=== PATIENT | female | born 1955 | race Two or more races ===

== ENCOUNTER 2016-12-11 10:39 | Outpatient (CLI) | payer MEDICARE, OTHER ==
[~2016-12-11 10:39] MED LIST: CARAFATE1 G1 ORAL; DIFLUCAN100 MG ORAL; FOLIC ACID1 MG ORAL; LEXAPRO10 MG ORAL; LINZESS145 MCG PO; METHOTREXATE2.5 MG PO; PREVACID30 MG ORAL; PROTONIX40 MG ORAL; RASUVO SUBQ; SIMVASTATIN5 MG ORAL; TYLENOL325 MG ORAL; TYLENOL650 MG/20. ORAL; VITAMIN C500 M1 ORAL; [UNRECOGNIZED DRUG - OTHER]; cholesterol med
--- NOTE | 2016-12-11 11:09 | GI Progress Note ---
Assessment/Plan Problems: (1) Marquita esophagitis ICD Codes: B37.81 - Marquita esophagitis SNOMED: 92757888 (2) GERD (gastroesophageal reflux disease) ICD Codes: K21.9 - GERD (gastroesophageal reflux disease) SNOMED: 249232730 (3) Constipation ICD Codes: K59.00 - Constipation SNOMED: 30025082 (4) Esophagitis ICD Codes: K20.9 - Esophagitis SNOMED: 55952159 Status: stable Status Narrative Seen with . Assessment/Plan EGD scheduled for 12/17/16 - NPO @ [place] day prior procedure. refill rx; Carafate, baclofen new rx; Prevacid. Subjective Subjective abdominal pain GERD Objective T 98.0 BP 105/65 P 81 97 RA weight gain General Appearance: no apparent distress, alert, thin Cardiovascular: normal rate Respiratory/Chest: normal breath sounds, no respiratory distress Abdominal Exam: normal bowel sounds, non tender, soft Extremities: normal range of motion Objective Endoscopy Procedure Note Indication for Procedure: GERD Procedures Performed: EGD Operative Findings/Diagnosis: candid esophagitis LILY APODACA - Nov 23, 2015 10:51 Abigail Sparrow NAlon December 11, 2016 11:09
[2016-12-11] MEDS ORDERED: PREVACID 24HR15 M1 ORAL (11:10)
== END 2016-12-11 11:00 | disposition home or self-care (01) ==
LOC: PAN 10:39
DX: K21.9 Gastro-esophageal reflux disease without esophagitis (principal); K59.00 Constipation, unspecified; K20.9 Esophagitis, unspecified; B37.81 Candidal esophagitis
CPT/HCPCS: 99211

== ENCOUNTER 2016-12-17 09:27 | Day surgery (SDC) | payer MEDICARE, MEDICAID ==
[2016-12-17] VITALS (9 sets, daily range): BP systolic 95–120; BP diastolic 58–68
[~2016-12-17] VITALS: Ht 154.9 cm; Wt 53.1 kg
[~2016-12-17 09:27] MED LIST changes: +PREVACID 24HR15 M1 ORAL
--- NOTE | 2016-12-17 09:59 | Pre-Procedure Note/Attestation ---
Pre-Procedure Note/Attestation Complete Prior to Procedure Planned Procedure: not applicable Procedure Narrative: egd Indications for Procedure Pre-Operative Diagnosis: GERD Attestation I attest that I discussed the nature of the procedure; its benefits; risks and complications; and alternatives (and the risks and benefits of such alternatives ), prior to the procedure, with the patient (or the patient's legal accounts receivable representative). I attest that, if there was a reasonable possibility of needing a blood transfusion, the patient (or the patient's legal accounts receivable representative) was given the [facility] standardized written summary, pursuant to the Max[employer] [place] Blood Safety Act ([place] Health and Safety Code # 1645, as amended). I attest that I re-evaluated the patient just prior to the surgery and that there has been no change in the patient's H&P, except as documented below: LILY APODACA December 17, 2016 09:59
--- NOTE | 2016-12-17 10:00 | Short Stay Surgery H&P ---
History of Present Illness History of Present Illness Chief Complaint gerd HPI Desiree Baxter is a 61 year old female who was admitted on for GERD Patient History Allergies: Coded Allergies: No Known Allergies (Unverified , 12/09/13) PAST MEDICAL HISTORY: (1) Esophagitis (2) Constipation (3) GERD (gastroesophageal reflux disease) (4) Marquita esophagitis (5) Hx of esophagogastroduodenoscopy Past Surgeries: Social History: Medication History Scheduled Ascorbic Acid* (Vitamin C*), 1,000 MG ORAL DAILY, (Reported) Folic Acid* (Folic Acid*), 1 MG ORAL DAILY, (Reported) Lansoprazole* (Prevacid 24HR*), 15 MG ORAL DAILY, (Reported) Linaclotide (Linzess), 145 MCG PO DAILY, (Reported) Pantoprazole* (Protonix*), 40 MG ORAL DAILY, (Reported) Simvastatin (Zocor), 20 MG ORAL BEDTIME, (Reported) Sucralfate* (Carafate*), 1 GM ORAL TID, (Reported) [Rasuvo injection ], 7.5 MG SUBQ QWEEK, (Reported) Scheduled PRN Acetaminophen (Acetaminophen), 650 MG ORAL Q6H PRN for Prn Headache/Temp > 101, (Reported) Review of Systems Cardiovascular: Reports: no symptoms Respiratory: Reports: no symptoms Skeletal: Reports: no symptoms Gastrointestinal: Reports: no symptoms Genitourinary: Reports: no symptoms Neurologic: Reports: no symptoms Endocrine: Reports: no symptoms Hematologic: Reports: no symptoms Physical Exam Skin: normal HENT: normal Heart: normal Lungs: normal Abdomen: normal Extremities: normal Plan Plan of Care egd Final Diagnosis: Attestation Are the patient's medical conditions optimized for surgery? Attestation Response: yes LILY APODACA December 17, 2016 10:00
[2016-12-17] MEDS ORDERED: Lidocaine 1% MPF 10mg/ml 5ml ONE (10:30)
[2016-12-17] MEDS ORDERED: LR 1000ml ONE (10:30)
[2016-12-17] MEDS ORDERED: Propofol 10mg/ml 20ml IV ONE (10:30)
--- NOTE | 2016-12-17 10:51 | Immediate Post-Op Evaluation ---
Immediate Post-Op Evalulation Immediate Post-Op Evalulation Procedure: EGD Date of Evaluation: December 17, 2016 Time of Evaluation: 10:50 IV Fluids: 300 Blood Pressure Systolic: 95 Blood Pressure Diastolic: 60 Pulse Rate: 14 Respiratory Rate: 14 O2 Sat by Pulse Oximetry: 97 Temperature (Fahrenheit): 97.8 Nausea: No Vomiting: No Complications none Patient Status: awake, reacts, patent Hydration Status: adequate Drug: none ABHINAV BERNARD CRNA December 17, 2016 10:51
--- NOTE | 2016-12-17 10:54 | Anethesia Preoperative Eval ---
Anesthesia Pre-op PMH/ROS General Date of Evaluation: December 17, 2016 Time of Evaluation: 10:53 Anesthesiologist: jeferson ASA Score: ASA 2 Mallampati Score Class I : Soft palate, uvula, fauces, pillars visible Class II: Soft palate, uvula, fauces visible Class III: Soft palate, base of uvula visible Class IV: Only hard plate visible Mallampati Classification: Class II Surgeon: denita Diagnosis: GERD Surgical Procedure: EGD Anesthesia History: none Family History: no anesthesia problems Allergies: Coded Allergies: No Known Allergies (Unverified , 12/09/13) Medications: see eMAR Past Medical History Gastrointestinal/Genitourinary: Reports: GERD Neurologic/Psychiatric: Denies: CVA, TIA, dementia, depression/anxiety, other Endocrine: Denies: DM, hypothyroidism, other, steroids HEENT: Denies: [place] (L), [place] (R), cataract (L), cataract (R), glaucoma, other Hematology/Immune: Denies: DVT, anemia, bleeding disorder, other Musculoskeletal/Integumentary: Denies: DDD, DJD, OA, RA, edema, other PMH Narrative: hx esophogitis Anesthesia Pre-op Phys. Exam Physician Exam Last Vital Signs Date Time Temp Pulse Resp B/P Pulse Ox O2 Delivery O2 Flow Rate FiO2 12/17/16 10:03 97.7 69 18 115/68 98 Room Air Constitutional: NAD Neurologic: CN 2-12 intact Cardiovascular: RRR Respiratory: CTA Gastrointestinal: S/NT/ND Airway Exam Mallampati Score: Class II ROM: full Dentures: no lower, no upper Anesthesia Pre-op A/P Studies Pre-op Studies: EKG - SR Risk Assessment & Plan Plan: mac Status Change Before Surgery: No Pre-Antibiotics Drug: none ABHINAV BERNARD CRNA December 17, 2016 10:54
--- NOTE | 2016-12-17 10:54 | Endoscopy Procedure Note ---
Endoscopy Procedure Note Indication for Procedure: GERD Procedures Performed: EGD Operative Findings/Diagnosis: candidia esophagitis Specimen: yes Pt Tolerated Procedure Well: Yes Estimated Blood Loss: none Anesthesiologist: marito Anesthesia: MAC Implant(s) used?: No 50 yrs or older w/o bx or poly: Not Applicable 10yrs. F/U not recommended: Not Applicable LILY APODACA December 17, 2016 10:54
--- NOTE | 2016-12-17 12:00 | 48 Hour Post Anesthesia Eval ---
Post Anesthesia Evaluation Procedure: EGD Date of Evaluation: December 17, 2016 Time of Evaluation: 11:59 Blood Pressure Systolic: 120 0: 60 Pulse Rate: 74 Respiratory Rate: 14 O2 Sat by Pulse Oximetry: 100 Airway: patent Nausea: No Vomiting: No Hydration Status: adequate Mental Status/LOC: patient returned to baseline Post-Anesthesia Complications: none Follow-up care needed: N/A ABHINAV BERNARD CRNA December 17, 2016 12:00
--- NOTE | 2016-12-17 18:49 | Procedure Note ---
DATE OF PROCEDURE: 12/17/2016 SURGEON: Dejuan Hunter M.D. PROCEDURE: Upper endoscopy with biopsy. ANESTHESIA: Per [employer], Kelsey Tarrillade. INSTRUMENT: Olympus adult flexible upper endoscope. INDICATION: Dysphagia. REASON FOR PROCEDURE: The procedure, risks, benefits, and possible consequences, including hemorrhage, aspiration, perforation and infection, and alternative treatments, were explained to the patient/legal guardian by Dr. Dejuan Hunter and the patient/legal guardian understood and accepted these risks. DESCRIPTION OF PROCEDURE: After informed consent was obtained and the patient was adequately sedated, Olympus upper endoscope was advanced from mouth into the second portion of duodenum and retroflexion was performed in the stomach. The patient had diffuse gastritis. In the stomach, there were multiple white patches highly suspicious for Marquita esophagitis. [place] biopsy of this area was obtained. The patient tolerated the procedure very well without any complication. SUMMARY OF FINDINGS: 1. Marquita esophagitis. 2. Gastritis. RECOMMENDATIONS: Follow up biopsies and treat accordingly. Dejuan Hunter M.D. DR: ZELDA JOB#: [id number] CC:
--- NOTE | 2016-12-18 14:30 | Cardiology Report ---
APPROVED REPORT EKG Measurement Heart [id number] MN [id number] [id number] Normal sinus rhythm Normal ECG
== END 2016-12-17 12:00 | disposition home or self-care (01) ==
LOC: GAS 09:27
DX: B37.81 Candidal esophagitis (principal); K29.70 Gastritis, unspecified, without bleeding; K21.9 Gastro-esophageal reflux disease without esophagitis
CPT/HCPCS: 43239; 93005; J2704; J7120; 94003; 94150

== ENCOUNTER 2017-01-01 10:19 | Outpatient (CLI) | payer MEDICARE, MEDICAID ==
[2017-01-01 10:29] VITALS: BP 113/58
--- NOTE | 2017-01-01 11:20 | GI Progress Note ---
Assessment/Plan Problems: (1) Marquita esophagitis ICD Codes: B37.81 - Marquita esophagitis SNOMED: 81193684 (2) GERD (gastroesophageal reflux disease) ICD Codes: K21.9 - GERD (gastroesophageal reflux disease) SNOMED: 915380628 (3) Constipation ICD Codes: K59.00 - Constipation SNOMED: 81622363 (4) Esophagitis ICD Codes: K20.9 - Esophagitis SNOMED: 91399456 Status: stable Status Narrative Seen with . Assessment/Plan EGD reviewed with patient >> gastritis + marquita esophagitis rx fluconazole 200mg x 10 days refill Linzess RTC x 3 months Subjective Gastrointestinal/Abdominal: Reports: constipated - taking linzess Objective Last 24 Hour Vital Signs Date Time Temp Pulse Resp B/P Pulse Ox O2 Delivery O2 Flow Rate FiO2 01/01/17 10:29 97.6 73 18 113/58 General Appearance: no apparent distress, alert Cardiovascular: normal rate Respiratory/Chest: normal breath sounds, no respiratory distress Abdominal Exam: normal bowel sounds, non tender, soft Extremities: normal range of motion Abigail Sparrow N.P. January 01, 2017 11:20
== END 2017-01-01 10:50 | disposition home or self-care (01) ==
LOC: PAN 10:19
DX: K21.9 Gastro-esophageal reflux disease without esophagitis (principal); B37.81 Candidal esophagitis; K59.00 Constipation, unspecified; K20.9 Esophagitis, unspecified
CPT/HCPCS: 99211

== ENCOUNTER → 2017-03-05 | Outpatient (CLI) | payer MEDICARE, MEDICAID ==
[~2017-03-05] MED LIST changes: +ACETAMINOPHEN325 M1 ORAL
[2017-03-05 10:19] VITALS: BP 98/63
--- NOTE | 2017-03-05 10:57 | GI Progress Note ---
Assessment/Plan Problems: (1) Hx of esophagogastroduodenoscopy ICD Codes: Z98.89 - Other specified postprocedural states SNOMED: 43992354, 571379308 (2) Marquita esophagitis ICD Codes: B37.81 - Marquita esophagitis SNOMED: 41350481 (3) GERD (gastroesophageal reflux disease) ICD Codes: K21.9 - GERD (gastroesophageal reflux disease) SNOMED: 896081412 (4) Constipation ICD Codes: K59.00 - Constipation SNOMED: 09512344 (5) Esophagitis ICD Codes: K20.9 - Esophagitis SNOMED: 46596586 Status: stable Status Narrative Seen with Dr. Hunter. Assessment/Plan fungus esophagitis s/p tx refill linzess, carafate, baclofen RTC x 3 months Subjective Subjective GERD >> prevacid / carafate constipation >> Linzess, request to change to 290mcg. Objective Last 24 Hour Vital Signs Date Time Temp Pulse Resp B/P Pulse Ox O2 Delivery O2 Flow Rate FiO2 03/05/17 10:19 97.9 74 16 98/63 Weight (Pounds): 124 General Appearance: no apparent distress, alert Cardiovascular: normal rate Respiratory/Chest: normal breath sounds, no respiratory distress Abdominal Exam: normal bowel sounds, non tender, soft Extremities: normal range of motion Abigail Sparrow N.P. Mar 05, 2017 10:57
== END | disposition home or self-care (01) ==
LOC: PAN 10:04
DX: B37.81 Candidal esophagitis (principal); Z98.890 Other specified postprocedural states; K21.9 Gastro-esophageal reflux disease without esophagitis; K59.00 Constipation, unspecified; K20.9 Esophagitis, unspecified
CPT/HCPCS: 99211

== ENCOUNTER 2017-07-25 13:30 | Outpatient (CLI) | payer MEDICARE, MEDICAID ==
[2017-07-25 13:56] VITALS: BP 116/60
--- NOTE | 2017-07-25 14:37 | GI Progress Note ---
Assessment/Plan Problems: (1) Esophagitis ICD Codes: K20.9 - Esophagitis SNOMED: 41752441 (2) Constipation ICD Codes: K59.00 - Constipation SNOMED: 05863220 (3) GERD (gastroesophageal reflux disease) ICD Codes: K21.9 - GERD (gastroesophageal reflux disease) SNOMED: 713015634 (4) Hx of esophagogastroduodenoscopy ICD Codes: Z98.89 - Other specified postprocedural states SNOMED: 39861251, 990407759 (5) Marquita esophagitis ICD Codes: B37.81 - Marquita esophagitis SNOMED: 24548522 Status: stable Status Narrative Seen with Dr. Hunter. Assessment/Plan last EGD 12/19 RX refill * Prevacid * Diflucan * Carafate * Baclofen * Linzess plan for colonoscopy during next visit RTC x 1 month Subjective Subjective here for medication refills states linzess works very well epigastric pain abdominal bloating GERD Objective Last 24 Hour Vital Signs Date Time Temp Pulse Resp B/P (MAP) Pulse Ox O2 Delivery O2 Flow Rate FiO2 07/25/17 13:56 97.8 73 16 116/60 96 General Appearance: WD/WN, no apparent distress, alert Cardiovascular: normal rate Respiratory/Chest: normal breath sounds, no respiratory distress Abdominal Exam: normal bowel sounds, non tender, soft Extremities: normal range of motion, non-tender Abigail Sparrow N.P. Jul 25, 2017 14:37
== END 2017-07-25 14:02 | disposition home or self-care (01) ==
LOC: PAN 13:30
DX: K20.9 Esophagitis, unspecified (principal); K59.00 Constipation, unspecified; K21.9 Gastro-esophageal reflux disease without esophagitis; B37.81 Candidal esophagitis
CPT/HCPCS: 99211

== ENCOUNTER 2017-07-30 12:38 | Outpatient (CLI) | payer MEDICARE, MEDICAID ==
--- NOTE | 2017-07-30 16:44 | Diagnostic Imaging Report ---
Indication:Abdominal pain Technique: Grayscale and duplex Doppler imaging of the abdomen performed. Comparison: None Findings: The liver, demonstrated part of the pancreas, gallbladder, and IVC, both kidneys, spleen appear unremarkable. Aorta is moderately calcified consistent with atherosclerotic disease. There is no biliary ductal dilatation identified. Doppler evaluation of the main portal vein shows patency. There is no ascites. No hydronephrosis seen. CBD is 2.6 mm Impression: No acute findings. Atherosclerotic disease
== END 2017-07-30 14:38 | disposition home or self-care (01) ==
LOC: ULS 12:38
DX: R10.9 Unspecified abdominal pain (principal); I70.90 Unspecified atherosclerosis
CPT/HCPCS: 76700

== ENCOUNTER 2017-12-09 14:48 | Outpatient (CLI) | payer MEDICARE, MEDICAID ==
[2017-12-09 15:00] VITALS: BP 118/58
--- NOTE | 2017-12-09 15:29 | GI Progress Note ---
Assessment/Plan Problems: (1) Hx of esophagogastroduodenoscopy ICD Codes: Z98.89 - Other specified postprocedural states SNOMED: 98161561, 843020735 (2) GERD (gastroesophageal reflux disease) ICD Codes: K21.9 - GERD (gastroesophageal reflux disease) SNOMED: 704261121 (3) Constipation ICD Codes: K59.00 - Constipation SNOMED: 80489571 (4) Esophagitis ICD Codes: K20.9 - Esophagitis SNOMED: 24438558 Status: stable Status Narrative Seen with Dr. Hunter. Assessment/Plan last EGD 12/19 RX refill * Prevacid * Diflucan * Carafate * Baclofen * Linzess * add Bentyl prn plan for colonoscopy during next visit RTC x 3 month Subjective Subjective epigastric pain GERD oral pain due to blisters has history of esophageal cristina Objective T 98.4 BP 118/58 P 78 96 RA General Appearance: WD/WN, no apparent distress, alert Cardiovascular: normal rate Respiratory/Chest: normal breath sounds, no respiratory distress Abdominal Exam: normal bowel sounds, non tender, soft Extremities: normal range of motion, non-tender Abigail Sparrow NAlon December 09, 2017 15:29
== END 2017-12-09 15:18 | disposition home or self-care (01) ==
LOC: PAN 14:48
DX: K21.9 Gastro-esophageal reflux disease without esophagitis (principal); K59.00 Constipation, unspecified; K20.9 Esophagitis, unspecified; Z98.890 Other specified postprocedural states
CPT/HCPCS: 99212

== ENCOUNTER 2018-09-15 13:30 | Outpatient (CLI) | payer MEDICARE, MEDICAID ==
[2018-09-16 12:08] VITALS: BP 119/63
--- NOTE | 2018-09-17 15:47 | GI Initial Consult Note ---
History of Present Illness General Date patient seen: Sep 16, 2018 Time patient seen: 15:43 Reason for Consultation: Odynophagia Present Illness HPI This is a 62-year-old female patient known to us presents today with dysphagia and odynophagia. Patient has history of GERD, esophageal candidiasis, severe constipation in which she is on Linzess 290 mcg. Symptomatically, the patient presents with esophageal and abdominal pain. Denies any unintentional weight loss or changes in dietary habits. No signs of abuse or neglect. Patient is not fall risk. Home Meds Reported Medications Acetaminophen* (ACETAMINOPHEN 325MG TABLET*) 325 Mg Tablet, 650 MG ORAL Q6H PRN for Pain Scale (3-5), TAB 03/05/17 Lansoprazole* (PREVACID*) 30 Mg Capsule.dr, 30 MG ORAL DAILY, CAP 03/05/17 [Rasuvo injection ] No Conflict Check, 10 MG SUBQ QWEEK 03/08/16 Ascorbic Acid* (VITAMIN C*) 500 Mg Tablet, 1000 MG ORAL DAILY, #30 TAB 0 Refills 11/22/15 Sucralfate* (CARAFATE*) 1 Gm Tablet, 1 GM ORAL TID, TAB PO SOLUTION 10 ML TID 09/29/14 Folic Acid* (FOLIC ACID*) 1 Mg Tablet, 1 MG ORAL DAILY, TAB 08/31/14 Linaclotide (LINZESS) 145 Mcg Capsule, 145 MCG PO DAILY, CAP 08/31/14 Simvastatin (ZOCOR) 5 Mg Tablet, 20 MG ORAL BEDTIME, TAB 12/09/13 Med list reviewed/reconciled: Yes Allergies: Coded Allergies: No Known Allergies (Unverified , 12/09/13) Patient History History Provided By: Patient, Medical Record [facility] Narrative (1) Esophagitis (2) Constipation (3) GERD (gastroesophageal reflux disease) (4) Marquita esophagitis (5) Hx of esophagogastroduodenoscopy Social History: Denies: smoking, alcohol use, drug use, other Review of Systems All Other Systems: negative except mentioned in HPI Physical Exam Vital Signs Date Time Temp Pulse Resp B/P (MAP) Pulse Ox O2 Delivery O2 Flow Rate FiO2 09/16/18 12:08 97.8 70 119/63 99 Sp02 EP Interpretation: reviewed, normal General Appearance: well appearing, no apparent distress, alert Head: normocephalic EENT: PERRL/EOMI, normal ENT inspection Neck: supple Respiratory: normal breath sounds, no respiratory distress Cardiovascular: normal rate Gastrointestinal: normal inspection, non tender, soft, normal bowel sounds, non -distended Rectal: deferred Genitourinary: no CVA tenderness Musculoskeletal: normal inspection, back normal Neurologic: normal inspection, alert, oriented x3, responsive Psychiatric: normal inspection, judgement/insight normal, memory normal Skin: normal inspection, normal color, no rash, warm/dry, palpation normal, well hydrated Lymphatic: normal inspection, no adenopathy GI: Plan Problems: (1) Odynophagia (2) Hx of esophagogastroduodenoscopy (3) GERD (gastroesophageal reflux disease) (4) Constipation (5) Esophagitis (6) Marquita esophagitis Plan EGD/colonoscopy September 26 at 9 AM. - CLD & (Nulytely/Suprep/Movi-Prep) prep instructions given and acknowledged by patient. - NPO @ [place] day prior procedure explained. Will follow with additional recs post procedure. Seen with Dr. Hunter. Thank you for this patient referral. The patient was seen and examined at bedside and all new and available data was reviewed in the patients chart. I agree with the above findings, impression and plan. (Patient seen earlier today. Signature stamp does not reflect patient encounter time.). - MD [facility] Sep 17, 2018 15:47
== END 2018-09-15 14:00 | disposition home or self-care (01) ==
LOC: PAN 13:30
DX: R13.10 Dysphagia, unspecified (principal); K21.9 Gastro-esophageal reflux disease without esophagitis; R10.9 Unspecified abdominal pain; K59.00 Constipation, unspecified; B37.81 Candidal esophagitis
CPT/HCPCS: 99212

== ENCOUNTER 2018-10-01 09:52 | Day surgery (SDC) | payer MEDICARE, MEDICAID ==
[~2018-10-01] VITALS: Ht 152.4 cm; Wt 54.4 kg
[2018-10-01 10:41] VITALS: BP 121/63
--- NOTE | 2018-10-01 10:44 | Pre-Procedure Note/Attestation ---
Pre-Procedure Note/Attestation Complete Prior to Procedure Planned Procedure: not applicable Procedure Narrative: esophagogastroduodenoscopy and colonoscopy Indications for Procedure Pre-Operative Diagnosis: screening colon, GERD Attestation I attest that I discussed the nature of the procedure; its benefits; risks and complications; and alternatives (and the risks and benefits of such alternatives ), prior to the procedure, with the patient (or the patient's legal visitor services representative). I attest that, if there was a reasonable possibility of needing a blood transfusion, the patient (or the patient's legal visitor services representative) was given the [facility] standardized written summary, pursuant to the Max[employer] [place] Blood Safety Act ([place] Health and Safety Code # 1645, as amended). I attest that I re-evaluated the patient just prior to the surgery and that there has been no change in the patient's H&P, except as documented below: Dejuan Hunter MD Oct 01, 2018 10:44
--- NOTE | 2018-10-01 10:44 | Short Stay Surgery H&P ---
History of Present Illness History of Present Illness Chief Complaint see recent office note HPI Desiree Baxter is a 62 year old female who was admitted on for Gerd, Abdominal Pain Patient History Allergies: Coded Allergies: No Known Allergies (Unverified , 10/01/18) Medication History Scheduled Ascorbic Acid* (Vitamin C*), 1,000 MG ORAL DAILY, (Reported) Folic Acid* (Folic Acid*), 1 MG ORAL DAILY, (Reported) Lansoprazole* (Prevacid*), 30 MG ORAL DAILY, (Reported) Linaclotide (Linzess), 145 MCG PO DAILY, (Reported) Simvastatin (Zocor), 20 MG ORAL BEDTIME, (Reported) Discontinued Medications Acetaminophen* (Acetaminophen 325MG Tablet*), 650 MG ORAL Q6H PRN for Pain Scale (3-5), (Reported) Discontinued Reason: Pt stopped taking med Sucralfate* (Carafate*), 1 GM ORAL TID, (Reported) Discontinued Reason: Pt stopped taking med [Rasuvo injection ], 10 MG SUBQ QWEEK, (Reported) Discontinued Reason: Pt stopped taking med Plan Attestation Are the patient's medical conditions optimized for surgery? Dejuan Hunter MD Oct 01, 2018 10:44
[2018-10-01] MEDS ORDERED: Lidocaine 1% MPF 10mg/ml 5ml ONE (11:00)
[2018-10-01] MEDS ORDERED: Propofol 200mg/20ml IV ONE (11:00)
--- NOTE | 2018-10-01 11:37 | Anethesia Preoperative Eval ---
Anesthesia Pre-op PMH/ROS General Date of Evaluation: Oct 01, 2018 Time of Evaluation: 10:49 Anesthesiologist: lucy ASA Score: ASA 2 Mallampati Score Class I : Soft palate, uvula, fauces, pillars visible Class II: Soft palate, uvula, fauces visible Class III: Soft palate, base of uvula visible Class IV: Only hard plate visible Mallampati Classification: Class II Surgeon: bobo Diagnosis: gerd, abdominal pain Surgical Procedure: egd/colonoscopy Anesthesia History: none Family History: no anesthesia problems Allergies: Coded Allergies: No Known Allergies (Unverified , 10/01/18) Medications: see eMAR Patient NPO?: Yes Past Medical History Gastrointestinal/Genitourinary: Reports: GERD, other PSxH Narrative: , appendectomy Anesthesia Pre-op Phys. Exam Physician Exam Last Vital Signs Date Time Temp Pulse Resp B/P (MAP) Pulse Ox O2 Delivery O2 Flow Rate FiO2 10/01/18 10:41 97.9 69 18 121/63 98 Room Air Constitutional: NAD Neurologic: CN 2-12 intact Cardiovascular: RRR Respiratory: CTA Gastrointestinal: S/NT/ND Airway Exam Mallampati Score: Class II MO: limited Neck: flexible TMD: 1fb ROM: limited Dentures: upper, lower Anesthesia Pre-op A/P Risk Assessment & Plan Assessment: asa2 Plan: mac Status Change Before Surgery: No Pre-Antibiotics Drug: Vickie Tillman MD Oct 01, 2018 11:37
[2018-10-01 11:45] VITALS: BP 101/51
[2018-10-01] MEDS ORDERED: fentaNYL 100 mcg/2 mL IV PRN (11:45)
[2018-10-01] MEDS ORDERED: Midazolam 2mg/2ml Inj IVP PRN (11:45)
[2018-10-01] MEDS ORDERED: DiphenhydrAMINE 50mg/ml Inj IVP PRN (11:45)
[2018-10-01] MEDS ORDERED: Atropine Inj 1mg/10ml Syr IV PRN (11:45)
[2018-10-01 11:50] VITALS: BP 96/53
[2018-10-01 12:00] VITALS: BP 102/51
--- NOTE | 2018-10-01 12:08 | Immediate Post-Op Evaluation ---
Immediate Post-Op Evalulation Immediate Post-Op Evalulation Procedure: egd/colonoscopy/bx Date of Evaluation: Oct 01, 2018 Time of Evaluation: 11:57 IV Fluids: 350ml 0.9ns Blood Products: none Estimated Blood Loss: negligible Blood Pressure Systolic: 101 Blood Pressure Diastolic: 51 Pulse Rate: 64 Respiratory Rate: 18 O2 Sat by Pulse Oximetry: 100 Temperature (Fahrenheit): 97.5 Pain Score (1-10): 0 Nausea: No Vomiting: No Complications none Patient Status: awake, reacts, patent Hydration Status: adequate Drug: Vickie Tillman MD Oct 01, 2018 12:08
[2018-10-01 12:10] VITALS: BP 102/49
--- NOTE | 2018-10-01 12:10 | 48 Hour Post Anesthesia Eval ---
Post Anesthesia Evaluation Procedure: egd/colonoscopy/bx Date of Evaluation: Oct 01, 2018 Time of Evaluation: 11:59 Blood Pressure Systolic: 110 0: 55 Pulse Rate: 61 Respiratory Rate: 18 Temperature (Fahrenheit): 97.5 O2 Sat by Pulse Oximetry: 100 Airway: patent Nausea: No Vomiting: No Pain Intensity: 0 Hydration Status: adequate Cardiopulmonary Status: stable Mental Status/LOC: patient returned to baseline Post-Anesthesia Complications: none Follow-up care needed: N/A Vickie Costello MD Oct 01, 2018 12:10
--- NOTE | 2018-10-01 12:20 | Endoscopy Procedure Note ---
Endoscopy Procedure Note General Indication for Procedure: screening colon, GERD Procedures Performed: EGD, colonoscopy Operative Findings/Diagnosis: gastritis, 2 colon polyps Specimen: yes Pt Tolerated Procedure Well: Yes Estimated Blood Loss: none Anesthesia Anesthesiologist: lucy Anesthesia: MAC Inserted Devices Implant(s) used?: No Quality Quality of Bowel Preparation: Good Did scope reach the cecum?: Yes Was there any complications?: No GI Core Measures 50 yrs or older w/o bx or poly: No 10yrs. F/U not recommended: Yes If not recommended, why?: Above average risk 10 yrs. F/U needed: Yes 18 years or older w/prev. colo: Yes <3yrs. since last colonoscopy: No Dejuan Hunter MD Oct 01, 2018 12:20
--- NOTE | 2018-10-01 16:30 | Procedure Note ---
DATE OF PROCEDURE: 10/01/2018 SURGEON: Dejuan Hunter M.D. PROCEDURE: Upper endoscopy with biopsy and colonoscopy with biopsy. ANESTHESIA: Per Dr. Mancia. INSTRUMENT: Olympus adult flexible upper endoscope and colonoscope. INDICATIONS: Screening colonoscopy evaluation and chronic GERD. REASON FOR PROCEDURE: The procedure, risks, benefits, and possible consequences, including hemorrhage, aspiration, perforation and infection, and alternative treatments, were explained to the patient/legal guardian by Dr. Dejuan Hunter and the patient/legal guardian understood and accepted these risks. PROCEDURE IN DETAIL: After informed consent was obtained and the patient was adequately sedated, Olympus upper endoscope was advanced from the mouth to the second portion of the duodenum and retroflexion was performed in the stomach. The patient had evidence of diffuse gastritis. Random biopsy from antrum and body was obtained to rule out H. pylori infection. Otherwise, the rest of the upper endoscopic examination grossly looked within normal limits. At this time, the upper endoscope was retrieved and the patient was turned over for colonoscopy. First, rectal exam was performed, which was positive for internal hemorrhoids. Then, the scope was advanced from the rectum into the cecum documented by appendiceal orifice, ileocecal valve, and right upper quadrant palpation. Quality of prep was good. The patient had two polyps, one in the transverse and one in the ascending colon, both were small, removed with the cold biopsy forceps technique. Otherwise, the rest of the colonoscopy examination grossly within normal limits. Retroflexion of rectum showed evidence of internal hemorrhoids. SUMMARY OF FINDINGS: 1. Gastritis, status post biopsy. 2. Two colonic polyps removed, see above for details. 3. Internal hemorrhoids. RECOMMENDATIONS: Follow up biopsy results and treat accordingly. Dejuan Hunter M.D. DR: NEL JOB#: [id number] CC:
--- NOTE | 2018-10-01 17:13 | Cardiology Report ---
APPROVED REPORT EKG Measurement Heart [id number] VA 144P57 [id number] Normal sinus rhythm Normal ECG
== END 2018-10-01 14:50 | disposition home or self-care (01) ==
LOC: GAS 09:52
DX: Z12.11 Encounter for screening for malignant neoplasm of colon (principal); D12.2 Benign neoplasm of ascending colon; D12.3 Benign neoplasm of transverse colon; K21.9 Gastro-esophageal reflux disease without esophagitis; K29.50 Unspecified chronic gastritis without bleeding; M19.90 Unspecified osteoarthritis, unspecified site; Z90.49 Acquired absence of other specified parts of digestive tract
CPT/HCPCS: 43239; 45380; 93005; J2704; 94003; 94150

== ENCOUNTER 2018-10-15 13:40 | Outpatient (CLI) | payer MEDICARE, MEDICAID ==
--- NOTE | 2018-10-15 14:20 | General Progress Note ---
Assessment/Plan Problem List: (1) Hx of esophagogastroduodenoscopy ICD Codes: Z98.89 - Other specified postprocedural states SNOMED: 53626572, 696180299 (2) Marquita esophagitis ICD Codes: B37.81 - Marquita esophagitis SNOMED: 28086044 (3) GERD (gastroesophageal reflux disease) ICD Codes: K21.9 - GERD (gastroesophageal reflux disease) SNOMED: 717612987 (4) Constipation ICD Codes: K59.00 - Constipation SNOMED: 61446454 (5) Odynophagia ICD Codes: R13.10 - Dysphagia, unspecified SNOMED: 40250950 (6) Esophagitis ICD Codes: K20.9 - Esophagitis SNOMED: 89278592 (7) Colon polyps ICD Codes: K63.5 - Polyp of colon SNOMED: 88867107 Assessment/Plan repeat colon in 5 years refill meds RTC prn Subjective ROS Limited/Unobtainable: Yes Allergies: Coded Allergies: No Known Allergies (Unverified , 10/01/18) Objective General Appearance: alert EENT: normal ENT inspection Neck: supple Cardiovascular: normal rate Respiratory/Chest: lungs clear Abdomen: normal bowel sounds, non tender, soft Extremities: non-tender Dejuan Hunter MD Oct 15, 2018 14:20
== END 2018-10-15 15:40 | disposition home or self-care (01) ==
LOC: PAN 13:40
DX: K21.9 Gastro-esophageal reflux disease without esophagitis (principal); K59.00 Constipation, unspecified; R13.10 Dysphagia, unspecified; K20.9 Esophagitis, unspecified; B37.81 Candidal esophagitis; K63.5 Polyp of colon
CPT/HCPCS: G0463

== ENCOUNTER 2019-01-06 10:03 | Outpatient (CLI) | payer MEDICARE, MEDICAID ==
[2019-01-06 10:09] VITALS: BP 124/54
--- NOTE | 2019-01-06 15:21 | General Progress Note ---
Assessment/Plan Problem List: (1) Hx of esophagogastroduodenoscopy ICD Codes: Z98.89 - Other specified postprocedural states SNOMED: 11118288, 440299038 (2) Colon polyps ICD Codes: K63.5 - Polyp of colon SNOMED: 69626912 (3) Marquita esophagitis ICD Codes: B37.81 - Marquita esophagitis SNOMED: 15489652 (4) GERD (gastroesophageal reflux disease) ICD Codes: K21.9 - GERD (gastroesophageal reflux disease) SNOMED: 123489813 (5) Constipation ICD Codes: K59.00 - Constipation SNOMED: 15966037 (6) Esophagitis ICD Codes: K20.9 - Esophagitis SNOMED: 88626862 (7) Odynophagia ICD Codes: R13.10 - Dysphagia, unspecified SNOMED: 92243472 Assessment/Plan: carafate ppi dexilant fluconazole Subjective ROS Limited/Unobtainable: Yes Allergies: Coded Allergies: No Known Allergies (Unverified , 10/01/18) Objective General Appearance: alert EENT: normal ENT inspection Neck: supple Cardiovascular: normal rate Respiratory/Chest: decreased breath sounds Abdomen: normal bowel sounds, non tender, soft Extremities: non-tender Dejuan Hunter MD Jan 06, 2019 15:21
[2019-01-06] MEDS ORDERED: DEXILANT60 MG ORAL (16:30)
== END 2019-01-06 12:00 | disposition home or self-care (01) ==
LOC: PAN 10:03
DX: K63.5 Polyp of colon (principal); Z98.890 Other specified postprocedural states; B37.81 Candidal esophagitis; K21.9 Gastro-esophageal reflux disease without esophagitis; K59.00 Constipation, unspecified; K20.9 Esophagitis, unspecified; R13.10 Dysphagia, unspecified
CPT/HCPCS: 99212

== ENCOUNTER → 2020-03-01 | Outpatient (CLI) | payer MEDICARE, MEDICAID ==
[~2020-03-01] MED LIST changes: +DEXILANT60 MG ORAL
[2020-03-01 15:05] VITALS: BP 131/59
--- NOTE | 2020-03-01 15:24 | General Progress Note ---
Assessment/Plan Assessment/Plan: Assessment/Plan Problem List: (1) Hx of esophagogastroduodenoscopy ICD Codes: Z98.89 - Other specified postprocedural states SNOMED: 10370747, 701919816 (2) Colon polyps ICD Codes: K63.5 - Polyp of colon SNOMED: 06757386 (3) Marquita esophagitis ICD Codes: B37.81 - Marquita esophagitis SNOMED: 00154232 (4) GERD (gastroesophageal reflux disease) ICD Codes: K21.9 - GERD (gastroesophageal reflux disease) SNOMED: 064739133 (5) Constipation ICD Codes: K59.00 - Constipation SNOMED: 11129377 (6) Esophagitis ICD Codes: K20.9 - Esophagitis SNOMED: 82224632 (7) Odynophagia ICD Codes: R13.10 - Dysphagia, unspecified SNOMED: 81065123 Assessment/Plan: carafate ppi abd us linzess fluconazole Subjective Allergies: Coded Allergies: No Known Allergies (Unverified , 10/01/18) Objective Last 24 Hour Vital Signs Date Time Temp Pulse Resp B/P (MAP) Pulse Ox O2 Delivery O2 Flow Rate FiO2 03/01/20 15:05 98.1 84 16 131/59 (83) 100 General Appearance: no apparent distress EENT: normal ENT inspection Neck: supple Cardiovascular: normal rate Respiratory/Chest: decreased breath sounds Abdomen: normal bowel sounds, non tender, soft Extremities: non-tender Dejuan Hunter MD Mar 01, 2020 15:24
== END | disposition home or self-care (01) ==
LOC: PAN 09:41
DX: K63.5 Polyp of colon (principal); B37.81 Candidal esophagitis; K21.9 Gastro-esophageal reflux disease without esophagitis; K59.00 Constipation, unspecified; K20.9 Esophagitis, unspecified; R13.10 Dysphagia, unspecified; Z98.890 Other specified postprocedural states

== ENCOUNTER → 2020-03-07 | Outpatient (CLI) | payer MEDICARE, MEDICAID ==
--- NOTE | 2020-03-07 10:29 | Diagnostic Imaging Report ---
ABDOMINAL ULTRASOUND - COMPLETE INDICATION: Abdominal pain. TECHNIQUE: Multiplanar ultrasound examination of the abdomen with greyscale and doppler imaging. COMPARISON: None FINDINGS: Liver: The liver is normal in size and demonstrates diffusely increased echogenicity. No focal abnormalities are noted. Gallbladder: The gallbladder is normal. No stones are visualized. The wall is not thickened. Common bile duct: Normal in size. Pancreas: The visualized portion of pancreas is normal in echogenicity. There are no masses. Kidneys: The kidneys are normal in size and echogenicity. There is no hydronephrosis. Spleen: The spleen is normal in size and echogenicity. Aorta: The aorta is normal in caliber and demonstrates calcification. IMPRESSION: 1. Hepatic steatosis. 2. Aortic atherosclerotic calcification.
== END | disposition home or self-care (01) ==
LOC: ULS 09:49
DX: R10.9 Unspecified abdominal pain (principal); K76.0 Fatty (change of) liver, not elsewhere classified
CPT/HCPCS: 76700

== ENCOUNTER 2020-03-29 09:33 | Outpatient (CLI) | payer MEDICARE, MEDICAID ==
--- NOTE | 2020-03-29 13:46 | General Progress Note ---
Assessment/Plan Assessment/Plan: Assessment/Plan Problem List: (1) Hx of esophagogastroduodenoscopy ICD Codes: Z98.89 - Other specified postprocedural states SNOMED: 14078647, 101056497 (2) Colon polyps ICD Codes: K63.5 - Polyp of colon SNOMED: 82444273 (3) Marquita esophagitis ICD Codes: B37.81 - Marquita esophagitis SNOMED: 80610291 (4) GERD (gastroesophageal reflux disease) ICD Codes: K21.9 - GERD (gastroesophageal reflux disease) SNOMED: 142323721 (5) Constipation ICD Codes: K59.00 - Constipation SNOMED: 96228829 (6) Esophagitis ICD Codes: K20.9 - Esophagitis SNOMED: 41891127 (7) Odynophagia ICD Codes: R13.10 - Dysphagia, unspecified SNOMED: 23326152 Assessment/Plan: carafate ppi abd us>> fatty liver linzess fluconazole prn bentyl simethicone Subjective ROS Limited/Unobtainable: Yes Allergies: Coded Allergies: No Known Allergies (Unverified , 10/01/18) Objective General Appearance: alert EENT: normal ENT inspection Neck: supple Cardiovascular: normal rate Respiratory/Chest: lungs clear Abdomen: normal bowel sounds, non tender, soft Extremities: non-tender Dejuan Hunter MD Mar 29, 2020 13:46
== END 2020-03-29 11:33 | disposition home or self-care (01) ==
LOC: PAN 09:33
DX: K63.5 Polyp of colon (principal); B37.81 Candidal esophagitis; K21.9 Gastro-esophageal reflux disease without esophagitis; K59.00 Constipation, unspecified; K20.9 Esophagitis, unspecified; R13.10 Dysphagia, unspecified; Z98.890 Other specified postprocedural states; K76.0 Fatty (change of) liver, not elsewhere classified
CPT/HCPCS: 99212

== ENCOUNTER 2020-08-22 14:08 | Outpatient (CLI) | payer MEDICARE, MEDICAID ==
--- NOTE | 2020-08-22 15:04 | General Progress Note ---
Subjective ROS Limited/Unobtainable: Yes Allergies: Coded Allergies: No Known Allergies (Unverified , 10/01/18) Objective General Appearance: alert EENT: normal ENT inspection Neck: supple Cardiovascular: normal rate Respiratory/Chest: decreased breath sounds Abdomen: normal bowel sounds, non tender, soft Extremities: non-tender Assessment/Plan Assessment/Plan: Assessment/Plan Problem List: (1) Hx of esophagogastroduodenoscopy ICD Codes: Z98.89 - Other specified postprocedural states SNOMED: 54000877, 367615055 (2) Colon polyps ICD Codes: K63.5 - Polyp of colon SNOMED: 15317259 (3) Marquita esophagitis ICD Codes: B37.81 - Marquita esophagitis SNOMED: 75199653 (4) GERD (gastroesophageal reflux disease) ICD Codes: K21.9 - GERD (gastroesophageal reflux disease) SNOMED: 442448784 (5) Constipation ICD Codes: K59.00 - Constipation SNOMED: 05542005 (6) Esophagitis ICD Codes: K20.9 - Esophagitis SNOMED: 86064480 (7) Odynophagia ICD Codes: R13.10 - Dysphagia, unspecified SNOMED: 53653332 Assessment/Plan: carafate patient has failed Protonix, dexilant and Omeprazole she only responses to Prevacid 30 mg abd us>> fatty liver Dejuan Osborne MD Aug 22, 2020 15:04
== END 2020-08-22 16:08 | disposition home or self-care (01) ==
LOC: PAN 14:08
DX: K63.5 Polyp of colon (principal); B37.81 Candidal esophagitis; K59.00 Constipation, unspecified; R13.10 Dysphagia, unspecified; K21.00 Gastro-esophageal reflux disease with esophagitis, without bleeding; Z98.890 Other specified postprocedural states; K76.0 Fatty (change of) liver, not elsewhere classified